=== PATIENT | male | born 2000 | race Caucasian/White ===

== ENCOUNTER 2019-12-05 11:26 | Emergency (ER) | payer OTHER ==
[~2019-12-05] VITALS: Ht 185.4 cm; Wt 79.5 kg
[2019-12-05 11:42] VITALS: TEMP 98.1
[2019-12-05] MEDS ORDERED: CEPHALEXIN500 M1 PO (12:01)
[2019-12-05] MEDS ORDERED: NORCO 325 MG-51 TAB PO (12:02)
[2019-12-05 12:58] VITALS: BP 121/77; PULSE 78
== END 2019-12-05 13:10 | disposition home or self-care (01) ==
LOC: COL.ER 11:26
DX: S61.312A Laceration without foreign body of right middle finger with damage to nail, initial encounter (principal); W23.0XXA Caught, crushed, jammed, or pinched between moving objects, initial encounter; Y92.89 Other specified places as the place of occurrence of the external cause